=== PATIENT | male | born 2000 | race Caucasian/White ===

== ENCOUNTER 2024-07-13 20:14 | Emergency (ER) | payer SELFPAY ==
[2024-07-13] MEDS ORDERED: dexAMETHasone 10 MG/ML VIAL ONE (20:24)
--- NOTE | 2024-07-13 20:28 | EDPHYS ---
Physician Documentation [facility] Name: Brien Ashley Age: 24 yrs Sex: Male : 2000 Arrival Date: 07/13/2024 Time: 20:14 Bed Waiting Private MD: ED Physician Faisal Mckeon HPI: 07/13 20:27 This 24 yrs old Male presents to ER via Unassigned with complaints of Rash. kb 20:27 Pt is a 24 year old male who presents for rash to bilateral forearms that started 2 kb weeks ago. States he got into poison caprice. Has taken prednisone and it is much better, but seems to be coming back now. Reports itching. . Historical: - Allergies: 20:35 No Known Allergies; cm10 - Home Meds: 20:35 Propranolol Oral [Active]; BuSpar Oral [Active]; cm10 - PMHx: 20:35 Anxiety; Depressive disorder; cm10 - PSHx: 20:35 None; cm10 - Immunization history:: Adult Immunizations up to date. - Infectious Disease History:: Denies. - Social history:: Smoking status: Patient denies any tobacco usage or history of. ROS: 20:26 Constitutional: As per HPI kb Exam: 20:26 Constitutional: This is a well developed, well nourished patient who is awake, alert, kb and in no acute distress. Head/Face: Normocephalic, atraumatic. ENT: Moist Mucous membranes Cardiovascular: Regular rate Respiratory: Respirations even and unlabored. No increased work of breathing. Talking in full sentences MS/ Extremity: Pulses equal, no cyanosis. Neurovascular intact. Full, normal range of motion. Neuro: Awake and alert, GCS 15, oriented to person, place, time, and situation. 20:26 Skin: rash a mild rash is noted, consistent with contact dermatitis, on the right arm and left arm, Vital Signs: 20:34 BP 130 / 75; Pulse 82; Resp 15; Temp 98.2; Pulse Ox 98% on R/A; Weight 70.31 kg; Height cm10 5 ft. 7 in. ; Pain 0/10; 20:34 Body Mass Index 24.28 (70.31 kg, 170.18 cm) cm10 20:34 Pain Scale: Adult cm10 MDM: 20:20 Medical Screening Exam initiated kb 20:27 Differential diagnosis: allergic reaction, parasite infection. Data reviewed: vital kb signs, nurses notes. Counseling: I had a detailed discussion with the patient and/or guardian regarding the historical points, exam findings, and any diagnostic results supporting the discharge/admit diagnosis, the need for outpatient follow up, a family practitioner, to return to the emergency department if symptoms worsen or persist or if there are any questions or concerns that arise at home. Administered Medications: 20:33 Drug: Famotidine PO 20 mg PO once Route: PO; cm10 20:42 Follow up: Response: No adverse reaction cm10 20:34 Drug: Dexamethasone IM 10 mg IM once Route: IM; Site: right gluteus; cm10 20:42 Follow up: Response: No adverse reaction cm10 Disposition Summary: 07/13/24 20:28 Discharge Ordered Notes: Location: Home kb Condition: Stable kb Diagnosis - Allergic contact dermatitis due to plants, except food kb Followup: kb - With: Emergency Department - When: As needed - Reason: Worsening of condition Followup: kb - With: Private Physician - When: 2 - 3 days - Reason: Recheck today's complaints, Continuance of care, Re-evaluation by your physician Discharge Instructions: - Discharge Summary Sheet kb - Poison Caprice Dermatitis, [id number] kb Forms: - Medication Reconciliation Form kb - Antibiotic Education kb - Prescription Opioid Use kb - Patient Portal Instructions kb - Leadership Thank You Letter kb Prescriptions: - Pepcid 20 mg Oral Tablet - take 1 tablet ORAL route every 12 hours for 5 days; 10 tablet; Refills: 0, kb Product Selection Permitted Signatures: Zohra Frost FNP-C FNP-Shirley Arthur, RN RN cm10 Corrections: (The following items were deleted from the chart) 20:36 20:35 Home Meds: None; cm10 cm10 20:36 20:35 PMHx: None; cm10 cm10
[2024-07-13] MEDS ORDERED: FAMOTIDINE 20 MG TAB ONE (20:30)
--- NOTE | 2024-07-13 20:43 | ER ---
Nurse's Notes [facility] Name: Brien Ashley Age: 24 yrs Sex: Male : 2000 Arrival Date: 07/13/2024 Time: 20:14 Bed Waiting Private MD: Diagnosis: Allergic contact dermatitis due to plants, except food Presentation: 07/13 20:34 Chief complaint: Patient states: Rash to bilateral arms onset today. pt states that the cm10 rash itches. Coronavirus screen: Client denies travel out of the [place] in the last 14 days. Ebola Screen: Patient denies travel to an Ebola-affected area in the 21 days before illness onset. Initial Sepsis Screen: Does the patient meet any 2 criteria? No. Patient's initial sepsis screen is negative. Does the patient have a suspected source of infection? No. Patient's initial sepsis screen is negative. Risk Assessment: Do you want to hurt yourself or someone else? Patient reports no desire to harm self or others. Onset of symptoms was July 13, 2024. 20:34 Method Of Arrival: Ambulatory cm10 20:34 Acuity: JAZMINE 4 cm10 Triage Assessment: 20:36 General: Appears in no apparent distress. comfortable, Behavior is calm, cooperative. cm10 Pain: Denies pain. Neuro: No deficits noted. Level of Consciousness is awake, alert, obeys commands, Oriented to person, place, time, situation, Appropriate for age. Respiratory: No deficits noted. Airway is patent Respiratory effort is even, unlabored, Respiratory pattern is regular, symmetrical. Derm: Rash noted that is itchy, red, on left arm and right arm. Historical: - Allergies: 20:35 No Known Allergies; cm10 - Home Meds: 20:35 Propranolol Oral [Active]; BuSpar Oral [Active]; cm10 - PMHx: 20:35 Anxiety; Depressive disorder; cm10 - PSHx: 20:35 None; cm10 - Immunization history:: Adult Immunizations up to date. - Infectious Disease History:: Denies. - Social history:: Smoking status: Patient denies any tobacco usage or history of. Screenin:36 [facility] ED Fall Risk Assessment (Adult) History of falling in the last 3 months, cm10 including since admission No falls in past 3 months (0 pts) Confusion or Disorientation No (0 pts) Intoxicated or Sedated No (0 pts) Impaired Gait No (0 pts) Mobility Assist Device Used No (0 pt) Altered Elimination No (0 pt) Score/Fall Risk Level 0 - 2 = Low Risk Oriented to surroundings, Maintained a safe environment, Hourly rounding (assess needs \T\ fall precautionary measures) done. Abuse screen: Denies threats or abuse. Denies injuries from another. Nutritional screening: No deficits noted. Tuberculosis screening: No symptoms or risk factors identified. Vital Signs: 20:34 BP 130 / 75; Pulse 82; Resp 15; Temp 98.2; Pulse Ox 98% on R/A; Weight 70.31 kg; Height cm10 5 ft. 7 in. ; Pain 0/10; 20:34 Body Mass Index 24.28 (70.31 kg, 170.18 cm) cm10 20:34 Pain Scale: Adult cm10 ED Course: 20:18 Patient arrived in ED. gm2 20:20 [facility] kb 20:20 Faisal Mckeon MD is Attending Physician. kb 20:34 Triage completed. cm10 20:36 Arm band placed on right wrist. Patient placed in waiting room. cm10 20:37 Patient has correct armband on for positive identification. Provided Education on: cm10 Follow-up instructions. 20:37 No provider procedures requiring assistance completed. Patient did not have IV access cm10 during this emergency room visit. Administered Medications: 20:33 Drug: Famotidine PO 20 mg PO once Route: PO; cm10 20:42 Follow up: Response: No adverse reaction cm10 20:34 Drug: Dexamethasone IM 10 mg IM once Route: IM; Site: right gluteus; cm10 20:42 Follow up: Response: No adverse reaction cm10 Medication: 20:36 VIS not applicable for this client. cm10 Outcome: 20:28 Discharge ordered by . kb 20:37 Discharged to home ambulatory, cm10 20:37 Condition: good 20:37 Discharge instructions given to patient, Instructed on discharge instructions, follow up and referral plans. medication usage, Demonstrated understanding of instructions, follow-up care, medications, Prescriptions given X 1, 20:42 Patient left the ED. cm10 Signatures: Zohra Frost FNP-C FNP-Ckb Martinez, Clarissa, RN RN cm10 Holly Aiken gm2 Corrections: (The following items were deleted from the chart) 20:36 20:35 Home Meds: None; cm10 cm10 20:36 20:35 PMHx: None; cm10 cm10
[2024-07-14 05:55] VITALS: BP 130/75; TEMP 98.2; O2SAT 98
== END 2024-07-13 20:42 | disposition home or self-care (01) ==
LOC: ER 20:14
DX: L23.7 Allergic contact dermatitis due to plants, except food (principal)
CPT/HCPCS: J1100

== ENCOUNTER 2024-07-17 20:49 | Emergency (ER) | payer SELFPAY ==
--- NOTE | 2024-07-17 21:23 | EDPHYS ---
Physician Documentation [facility] Name: Brien Ashley Age: 24 yrs Sex: Male : 2000 Arrival Date: 07/17/2024 Time: 20:49 Bed DX3 Private MD: ED Physician Garrett Dawn HPI: 07/17 21:58 This 24 yrs old Male presents to ER via Ambulatory with complaints of Allergic Reaction sb4 - poison caprice. 21:58 got into poison caprice 2 weeks ago, has had a rash ever since. was initially put on a sb4 short course of prednisone which made it go away for a few days then it came back. he came here 4 days ago, was given a dexamethasone injection and rx for pepcid. states it went away for a day then came right back. states it is on his arms and genitals and he cannot sleep because of it. Historical: - Allergies: 20:56 No Known Allergies; me1 - PMHx: 20:56 Anxiety; depressive disorder; me1 - PSHx: 20:56 None; me1 - Immunization history:: Adult Immunizations up to date. - Infectious Disease History:: Denies. - Social history:: Smoking status: Patient reports use of chewing tobacco. ROS: 21:58 Constitutional: Negative for fever, chills, and weight loss, sb4 21:58 Allergy/Immunology: Positive for rash, diffusely, 21:58 All other systems are negative, Exam: 22:00 Head/Face: Normocephalic, atraumatic. Eyes: Extra-ocular motions intact. Periorbital sb4 areas with no swelling, redness, or edema. ENT: Mucous membranes moist. Respiratory: No increased work of breathing, no retractions or nasal flaring. 22:00 Constitutional: The patient appears alert, awake, uncomfortable, 22:00 Skin: erythema and warmth on bilateral arms, Vital Signs: 20:53 BP 149 / 86; Pulse 86; Resp 16; Temp 98; Pulse Ox 99% ; Weight 70.31 kg; Height 5 ft. 7 me1 in. ; Pain 6/10; 20:53 Body Mass Index 24.28 (70.31 kg, 170.18 cm) me1 20:53 Pain Scale: Adult me1 MDM: 20:57 Medical Screening Exam initiated sb4 22:01 Data reviewed: vital signs, nurses notes, and as a result, I will discharge patient. sb4 Counseling: I had a detailed discussion with the patient and/or guardian regarding the historical points, exam findings, and any diagnostic results supporting the discharge/admit diagnosis, the need for outpatient follow up, for definitive care, to return to the emergency department if symptoms worsen or persist or if there are any questions or concerns that arise at home. Administered Medications: 21:33 Drug: MethylPREDNISolone Sodium Succinate IM 125 mg IM once Route: IM; Site: right vc1 ventrogluteal; 21:33 Follow up: Response: Medication administered at discharge. vc1 Disposition: 07/18 08:43 Co-signature as Attending Physician, Garrett Dawn MD I agree with the assessment and tabitha plan of care. Disposition Summary: 07/17/24 21:22 Discharge Ordered Notes: Location: Home sb4 Problem: an ongoing problem sb4 Symptoms: have improved sb4 Condition: Stable sb4 Diagnosis - Allergic contact dermatitis due to plants, except food sb4 Followup: sb4 - With: Private Physician - When: 1 week - Reason: Recheck today's complaints, Re-evaluation by your physician Discharge Instructions: - Discharge Summary Sheet sb4 - Poison Caprice Dermatitis sb4 Forms: - Patient Portal Instructions sb4 - Leadership Thank You Letter sb4 Prescriptions: - Benadryl 25 mg Oral Capsule - take 1 capsule ORAL route every 6 hours As needed; 30 tablet; Refills: 0, sb4 Product Selection Permitted - Hydrocortisone 0.5 % Topical Cream - apply 1 application TOPICAL route every 12 hours As needed; 30 gram; Refills: sb4 0, Product Selection Permitted - Prednisone 20 mg Oral Tablet - take 2 tablets ORAL route once daily for 5 days; 10 tablet; Refills: 0, Product sb4 Selection Permitted Signatures: Garrett Dawn MD MD cha Calcote, Vanessa RN RN vc1 Nicole Verde PA-C PA-C sb4 Anum Rees RN RN me1
--- NOTE | 2024-07-17 21:23 | ER ---
Nurse's Notes [facility] Name: Brien sAhley Age: 24 yrs Sex: Male : 2000 Arrival Date: 07/17/2024 Time: 20:49 Bed DX3 Private MD: Diagnosis: Allergic contact dermatitis due to plants, except food Presentation: 07/17 20:53 Chief complaint: Patient states: he got into some poison jennifer about a week ago. Was seen me1 here about 4 days ago and it got better and then flared back up. Rash to bilateral arms and groin. Coronavirus screen: Vaccine status: Patient reports receiving the 2nd dose of the covid vaccine. Ebola Screen: No symptoms or risks identified at this time. Onset: The symptoms/episode began/occurred 1 week(s) ago. Anaphylaxis evaluation, no signs or symptoms of anaphylaxis were noted. Initial Sepsis Screen: Does the patient meet any 2 criteria? No. Patient's initial sepsis screen is negative. Does the patient have a suspected source of infection? No. Patient's initial sepsis screen is negative. Risk Assessment: Do you want to hurt yourself or someone else? Patient reports no desire to harm self or others. Onset of symptoms is unknown. 20:53 Method Of Arrival: Ambulatory ne1 20:53 Acuity: JAZMINE 4 me1 Triage Assessment: 21:35 General: Appears in no apparent distress. uncomfortable, slender, well groomed, well vc1 developed, well nourished, Behavior is calm, cooperative, appropriate for age. Pain: Denies pain. EENT: No deficits noted. No signs and/or symptoms were reported regarding the EENT system. Neuro: Level of Consciousness is awake, alert, obeys commands, Oriented to person, place, time, situation, Appropriate for age. Cardiovascular: Heart tones S1 S2 present Capillary refill < 3 seconds Patient's skin is warm and dry. Respiratory: Airway is patent Respiratory effort is even, unlabored, Respiratory pattern is regular, symmetrical, Breath sounds are clear bilaterally. GI: No deficits noted. No signs and/or symptoms were reported involving the gastrointestinal system. : No deficits noted. No signs and/or symptoms were reported regarding the genitourinary system. Derm: Skin is intact, is healthy with good turgor, Skin is dry, Rash noted that is itchy, red, on groin, right arm and left arm. Musculoskeletal: Circulation, motion, and sensation intact. Range of motion: intact in all extremities. Historical: - Allergies: 20:56 No Known Allergies; me1 - PMHx: 20:56 Anxiety; depressive disorder; me1 - PSHx: 20:56 None; me1 - Immunization history:: Adult Immunizations up to date. - Infectious Disease History:: Denies. - Social history:: Smoking status: Patient reports use of chewing tobacco. Screenin:33 [facility] ED Fall Risk Assessment (Adult) History of falling in the last 3 months, vc1 including since admission No falls in past 3 months (0 pts) Confusion or Disorientation No (0 pts) Intoxicated or Sedated No (0 pts) Impaired Gait No (0 pts) Mobility Assist Device Used No (0 pt) Altered Elimination No (0 pt) Score/Fall Risk Level 0 - 2 = Low Risk Oriented to surroundings, Maintained a safe environment, Educated pt \T\ family on fall prevention, incl call for assistance when getting out of bed, Hourly rounding (assess needs \T\ fall precautionary measures) done. Abuse screen: Denies threats or abuse. Nutritional screening: No deficits noted. Tuberculosis screening: No symptoms or risk factors identified. Vital Signs: 20:53 BP 149 / 86; Pulse 86; Resp 16; Temp 98; Pulse Ox 99% ; Weight 70.31 kg; Height 5 ft. 7 me1 in. ; Pain 6/10; 20:53 Body Mass Index 24.28 (70.31 kg, 170.18 cm) me1 20:53 Pain Scale: Adult ne1 ED Course: 20:50 Patient arrived in ED. im 20:54 Nicole Verde PA-C is PHCP. sb4 20:54 Garrett Dawn MD is Attending Physician. sb4 20:56 Triage completed. me1 20:56 Arm band placed on Patient placed in waiting room. me1 21:34 Patient has correct armband on for positive identification. Seen in diagnostic chair. vc1 Provided Education on: take prescribed medications. 21:35 No provider procedures requiring assistance completed. Patient did not have IV access vc1 during this emergency room visit. Administered Medications: 21:33 Drug: MethylPREDNISolone Sodium Succinate IM 125 mg IM once Route: IM; Site: right vc1 ventrogluteal; 21:33 Follow up: Response: Medication administered at discharge. vc1 Medication: 21:35 VIS not applicable for this client. vc1 Outcome: 21:22 Discharge ordered by . sb4 21:37 Discharged to home ambulatory, vc1 21:37 Condition: stable 21:37 Discharge instructions given to patient, Instructed on discharge instructions, follow up and referral plans. medication usage, Demonstrated understanding of instructions, follow-up care, medications, Prescriptions given X 3, 21:37 Patient left the ED. vc1 Signatures: Tanisha Pickard, RN RN vc1 Nicole Verde, PA-C PA-C sbDebra Cummings Michelle, RN RN me1
[2024-07-17] MEDS ORDERED: METHYLPREDNISOLONE 125 MG INJ ONE (21:27)
[2024-07-17 21:42] VITALS: BP 149/86; TEMP 98; O2SAT 99
== END 2024-07-17 21:37 | disposition home or self-care (01) ==
LOC: ER 20:49
DX: L23.7 Allergic contact dermatitis due to plants, except food (principal); F17.220 Nicotine dependence, chewing tobacco, uncomplicated
CPT/HCPCS: 96372; 99284; J2919

== ENCOUNTER 2024-08-06 13:41 | Emergency (ER) | payer SELFPAY ==
--- NOTE | 2024-08-06 14:08 | ER ---
Nurse's Notes [facility] Name: Brien Ashley Age: 24 yrs Sex: Male : 2000 Arrival Date: 08/06/2024 Time: 13:41 Bed IW5 Private MD: Diagnosis: Dental procedure status Presentation: 08/06 14:04 Chief complaint: Patient states: "i feel like i have been hit by a truck, my whole body ap3 hurts." patient reports he is having body aches, and pain when swallowing. Coronavirus screen: Client presents with at least one sign or symptom that may indicate coronavirus-19. Ebola Screen: No symptoms or risks identified at this time. Initial Sepsis Screen: Does the patient meet any 2 criteria? HR > 90 bpm. Does the patient have a suspected source of infection? No. Patient's initial sepsis screen is negative. Risk Assessment: Do you want to hurt yourself or someone else? Patient reports no desire to harm self or others. Onset of symptoms was August 06, 2024. 14:04 Method Of Arrival: Ambulatory ap3 14:04 Acuity: JAZMINE 3 ap3 Triage Assessment: 14:07 General: Appears in no apparent distress. Behavior is cooperative, restless. Pain: ap3 Complains of pain in generalized body aches. EENT: Reports pain when swallowing. Neuro: Level of Consciousness is awake, alert, obeys commands, Oriented to person, place, time, situation, Appropriate for age. Cardiovascular: Patient's skin is warm and dry. Respiratory: Airway is patent Respiratory effort is even, unlabored, Respiratory pattern is regular, symmetrical. Historical: - Allergies: 14:07 No Known Allergies; ap3 - PMHx: 14:07 Anxiety; depressive disorder; ap3 - Immunization history:: Adult Immunizations up to date. - Infectious Disease History:: Denies. - Social history:: Smoking status: Reported history of juuling and/or vaping. Screenin:07 [facility] ED Fall Risk Assessment (Adult) History of falling in the last 3 months, ap3 including since admission No falls in past 3 months (0 pts) Confusion or Disorientation No (0 pts) Intoxicated or Sedated No (0 pts) Impaired Gait No (0 pts) Mobility Assist Device Used No (0 pt) Altered Elimination No (0 pt) Score/Fall Risk Level 0 - 2 = Low Risk Oriented to surroundings, Maintained a safe environment, Educated pt \\T\\ family on fall prevention, incl call for assistance when getting out of bed, Assessed \\T\\ reinforced patient's understanding of fall precautions, Hourly rounding (assess needs \\T\\ fall precautionary measures) done, Used ambulatory aids as needed (educated on \\T\\ assisted with). Abuse screen: Denies threats or abuse. Nutritional screening: No deficits noted. Tuberculosis screening: No symptoms or risk factors identified. Vital Signs: 14:04 BP 131 / 86; Pulse 113; Resp 17; Temp 98.3; Pulse Ox 100% ; Weight 74.84 kg; Height 5 ap3 ft. 7 in. ; Pain 6/10; 14:04 Body Mass Index 25.84 (74.84 kg, 170.18 cm) ap3 14:04 Pain Scale: Adult ap3 ED Course: 13:43 Patient arrived in ED. im 13:44 Nicole Verde [facility]-C [facility]. sb4 13:44 Mikki Pryor MD is Attending Physician. sb4 14:07 Triage completed. ap3 14:08 Arm band placed on right wrist. ap3 14:08 Patient has correct armband on for positive identification. Provided Education on: ap3 hydration education. 14:08 No provider procedures requiring assistance completed. Patient did not have IV access ap3 during this emergency room visit. Administered Medications: No medications were administered Medication: 14:08 VIS not applicable for this client. ap3 Outcome: 14:08 Discharge ordered by . sb4 14:10 Discharged to home ambulatory, ap3 14:10 Condition: good 14:10 Discharge instructions given to patient, Instructed on discharge instructions, follow up and referral plans. medication usage, Demonstrated understanding of instructions, follow-up care, medications, Prescriptions given X 1, 14:10 Patient left the ED. ap3 Signatures: Gilda Guajardo RN RN [email or web address] Nicole Verde PA-C PA-C sb4 Debra Graves im
--- NOTE | 2024-08-06 14:08 | EDPHYS ---
Physician Documentation [facility] Name: Brien Ashley Age: 24 yrs Sex: Male : 2000 Arrival Date: 08/06/2024 Time: 13:41 Bed IW5 Private MD: ED Physician Mikki Pryor HPI: 08/06 15:04 This 24 yrs old Male presents to ER via Ambulatory with complaints of Flu Symptoms. sb4 15:04 Patient states she woke up this morning with a fever and his entire body hurting. He sb4 states that he had a tooth extracted yesterday and is concerned about it. Wanted to make sure that it looks okay. He also reports a mild sore throat. He denies any nausea, cough, sinus congestion, other upper respiratory symptoms. Has taken ibuprofen today for his symptoms. Historical: - Allergies: 14:07 No Known Allergies; ap3 - PMHx: 14:07 Anxiety; depressive disorder; ap3 - Immunization history:: Adult Immunizations up to date. - Infectious Disease History:: Denies. - Social history:: Smoking status: Reported history of juuling and/or vaping. ROS: 15:04 Abdomen/GI: Negative for abdominal pain, nausea, vomiting, diarrhea, and constipation, sb4 15:04 Constitutional: Positive for body aches, chills, fever, 15:04 ENT: Positive for sore throat, 15:04 All other systems are negative, Exam: 15:04 Head/Face: Normocephalic, atraumatic. Eyes: Extra-ocular motions intact. Periorbital sb4 areas with no swelling, redness, or edema. Respiratory: No increased work of breathing, no retractions or nasal flaring. Skin: Warm, dry with normal turgor. Normal color with no rashes, no lesions, and no evidence of cellulitis. 15:04 Constitutional: The patient appears in no acute distress, alert, awake, 15:04 ENT: Posterior pharynx: Tonsils: are normal in appearance, Dental exam: missing teeth, specifically the upper left central incisor (#9), Mild bruising, clotted blood, no significant erythema or swelling. No purulence. 15:04 Cardiovascular: Rate: tachycardic, Rhythm: regular, Vital Signs: 14:04 BP 131 / 86; Pulse 113; Resp 17; Temp 98.3; Pulse Ox 100% ; Weight 74.84 kg; Height 5 ap3 ft. 7 in. ; Pain 6/10; 14:04 Body Mass Index 25.84 (74.84 kg, 170.18 cm) ap3 14:04 Pain Scale: Adult ap3 MDM: 13:46 Medical Screening Exam initiated sb4 15:06 Data reviewed: vital signs, nurses notes, and as a result, I will discharge patient. sb4 Counseling: I had a detailed discussion with the patient and/or guardian regarding the historical points, exam findings, and any diagnostic results supporting the discharge/admit diagnosis, the need for outpatient follow up, for definitive care, a dentist, to return to the emergency department if symptoms worsen or persist or if there are any questions or concerns that arise at home. ED course: I suspect the fever and bodyaches are secondary to a viral illness, however I will treat empirically with antibiotics given the recent extraction. Administered Medications: No medications were administered Disposition Summary: 08/06/24 14:08 Discharge Ordered Notes: Location: Home sb4 Problem: new sb4 Symptoms: have improved sb4 Condition: Stable sb4 Diagnosis - Dental procedure status sb4 Followup: sb4 - With: Emergency Department - When: As needed - Reason: Trouble breathing, Worsening of condition Discharge Instructions: - Discharge Summary Sheet sb4 - Dental Extraction, Care After, [id number] sb4 Forms: - Antibiotic Education sb4 - Patient Portal Instructions sb4 - Leadership Thank You Letter sb4 Prescriptions: - Amoxicillin 875 mg Oral Tablet - take 1 tablet ORAL route every 12 hours for 10 days; 20 tablet; Refills: 0, sb4 Product Selection Permitted Signatures: Gilda Guajardo RN RN ap3 Nicole Verde PA-C PAMjC sb4
[2024-08-06 14:23] VITALS: BP 131/86; TEMP 98.3; O2SAT 100
== END 2024-08-06 14:10 | disposition home or self-care (01) ==
LOC: ER 13:41
DX: Z98.818 Other dental procedure status (principal)
CPT/HCPCS: 99283

== ENCOUNTER 2024-08-25 22:13 | Emergency (ER) | payer SELFPAY ==
[2024-08-25] MEDS ORDERED: SMZ./TMP. 800/160 MG TABLET ONE (22:53)
[2024-08-25] MEDS ORDERED: HYDROCODONE/APAP 7.5/325 MG TAB ONE (22:54)
--- NOTE | 2024-08-25 23:10 | ER ---
Nurse's Notes [facility] Name: Brien Ashley Age: 24 yrs Sex: Male : 2000 Arrival Date: 08/25/2024 Time: 22:13 Bed 10 Private MD: Diagnosis: Cutaneous abscess of groin;Cutaneous abscess of left axilla Presentation: 08/25 22:25 Chief complaint: Patient states: abscess under left arm and on right side of groin, vc1 groin is leaking. Coronavirus screen: Client denies travel out of the [place] in the last 14 days. At this time, the client does not indicate any symptoms associated with coronavirus-19. Ebola Screen: Patient negative for fever greater than or equal to 101.5 degrees Fahrenheit, and additional compatible Ebola Virus Disease symptoms Patient denies exposure to infectious person. Patient denies travel to an Ebola-affected area in the 21 days before illness onset. No symptoms or risks identified at this time. Initial Sepsis Screen: Does the patient meet any 2 criteria? No. Patient's initial sepsis screen is negative. Does the patient have a suspected source of infection? No. Patient's initial sepsis screen is negative. Risk Assessment: Do you want to hurt yourself or someone else? Patient reports no desire to harm self or others. Onset of symptoms was August 22, 2024. Care prior to arrival: Medication(s) given: Motrin, took 2 hours ago Tylenol. 22:25 Method Of Arrival: Ambulatory vc1 22:25 Acuity: JAZMINE 4 vc1 Triage Assessment: 23:30 General: Appears in no apparent distress. uncomfortable, Behavior is calm, cooperative, vc1 appropriate for age. Pain: Complains of pain in groin and left axilla. EENT: No deficits noted. No signs and/or symptoms were reported regarding the EENT system. Neuro: Level of Consciousness is awake, alert, obeys commands, Oriented to person, place, time, situation, Appropriate for age. Cardiovascular: Capillary refill < 3 seconds Patient's skin is warm and dry. Respiratory: Airway is patent Respiratory effort is even, unlabored, Respiratory pattern is regular, symmetrical. GI: No deficits noted. No signs and/or symptoms were reported involving the gastrointestinal system. : No deficits noted. No signs and/or symptoms were reported regarding the genitourinary system. Derm: Skin is healthy with good turgor, Wound noted groin and left axilla. Musculoskeletal: Circulation, motion, and sensation intact. Range of motion: intact in all extremities. Historical: - Allergies: 22:27 No Known Allergies; vc1 - Home Meds: 22:27 BuSpar Oral [Active]; Propranolol Oral [Active]; vc1 - PMHx: 22:27 Anxiety; depressive disorder; vc1 - PSHx: 22:27 None; vc1 - Immunization history:: Client reports receiving the 2nd dose of the Covid vaccine, Flu vaccine is not up to date. - Infectious Disease History:: Denies. - Social history:: Smoking status: Patient reports use of chewing tobacco. Screenin:29 Abuse screen: Denies threats or abuse. Nutritional screening: No deficits noted. vc1 Tuberculosis screening: No symptoms or risk factors identified. 23:28 [facility] ED Fall Risk Assessment (Adult) History of falling in the last 3 months, vc1 including since admission No falls in past 3 months (0 pts) Confusion or Disorientation No (0 pts) Intoxicated or Sedated No (0 pts) Impaired Gait No (0 pts) Mobility Assist Device Used No (0 pt) Altered Elimination No (0 pt) Score/Fall Risk Level 0 - 2 = Low Risk Oriented to surroundings, Maintained a safe environment, Educated pt \T\ family on fall prevention, incl call for assistance when getting out of bed. Vital Signs: 22:25 BP 132 / 88; Pulse 88; Resp 16; Temp 98.3; Pulse Ox 100% ; Weight 74.84 kg; Height 5 vc1 ft. 7 in. ; Pain 10/10; 22:25 Body Mass Index 25.84 (74.84 kg, 170.18 cm) vc1 22:25 Pain Scale: Adult vc1 ED Course: 22:17 Patient arrived in ED. gm2 22:18 Zohra Frost FNP-C [facility] kb 22:18 Sherine Lemus MD is Attending Physician. kb 22:23 Patient has correct armband on for positive identification. Placed in gown. Bed in low vc1 position. Provided Education on: wound care. Pulse ox on. NIBP on. 22:27 Triage completed. vc1 22:28 Arm band placed on right wrist. vc1 22:55 Calcote, Tanisha, RN is Primary Nurse. vc1 23:28 No provider procedures requiring assistance completed. Patient did not have IV access vc1 during this emergency room visit. Administered Medications: 22:55 Drug: Trimethoprim-Sulfamethoxazole PO (160 mg-800 mg (DS) 1 tablet PO once Route: PO; vc1 23:31 Follow up: Response: No adverse reaction vc1 22:55 Drug: Hydrocodone-Acetaminophen PO (7.5 mg-325 mg) 1 tabs PO once Route: PO; vc1 23:31 Follow up: Response: No adverse reaction vc1 Medication: 23:29 VIS not applicable for this client. vc1 Outcome: 23:10 Discharge ordered by . maryann 23:29 Discharged to home ambulatory, vc1 23:29 Condition: stable 23:29 Discharge instructions given to patient, Instructed on discharge instructions, follow up and referral plans. medication usage, Demonstrated understanding of instructions, follow-up care, medications, 23:31 Patient left the ED. vc1 Signatures: Zohra Frost, AIX ARCHITECT-C AIX ARCHITECT-Tanisha Jeffries RN RN vc1 Holly Aiken 2
--- NOTE | 2024-08-25 23:10 | EDPHYS ---
Physician Documentation [facility] Name: Brien Ashley Age: 24 yrs Sex: Male : 2000 Arrival Date: 08/25/2024 Time: 22:13 Bed 10 Private MD: ED Physician Sherine Lemus HPI: 08/25 23:19 This 24 yrs old Male presents to ER via Ambulatory with complaints of Abscess, abscess kb under arm and in groin area. 23:19 Patient is a 24-year-old male who presents for abscess to right groin and left axilla kb that started a couple of days ago. States the one to the groin has been draining a lot of fluid today. Denies fever.. Historical: - Allergies: 22:27 No Known Allergies; vc1 - Home Meds: 22:27 BuSpar Oral [Active]; Propranolol Oral [Active]; vc1 - PMHx: 22:27 Anxiety; depressive disorder; vc1 - PSHx: 22:27 None; vc1 - Immunization history:: Client reports receiving the 2nd dose of the Covid vaccine, Flu vaccine is not up to date. - Infectious Disease History:: Denies. - Social history:: Smoking status: Patient reports use of chewing tobacco. ROS: 23:15 Constitutional: As per HPI kb Exam: 23:15 Constitutional: This is a well developed, well nourished patient who is awake, alert, kb and in no acute distress. Head/Face: Normocephalic, atraumatic. ENT: Moist Mucous membranes Cardiovascular: Regular rate Respiratory: Respirations even and unlabored. No increased work of breathing. Talking in full sentences MS/ Extremity: Pulses equal, no cyanosis. Neurovascular intact. Full, normal range of motion. Neuro: Awake and alert, GCS 15, oriented to person, place, time, and situation. 23:15 Skin: abscess, that is small, of the left axilla, with induration, 23:17 Skin: abscess, that is small, of the groin, with drainage, that is purulent, that is kb serosanguinous, Vital Signs: 22:25 BP 132 / 88; Pulse 88; Resp 16; Temp 98.3; Pulse Ox 100% ; Weight 74.84 kg; Height 5 vc1 ft. 7 in. ; Pain 10/10; 22:25 Body Mass Index 25.84 (74.84 kg, 170.18 cm) vc1 22:25 Pain Scale: Adult vc1 MDM: 22:18 Medical Screening Exam initiated kb 23:18 Differential diagnosis: abscess, cellulitis, insect bite. Data reviewed: vital signs, kb nurses notes. Counseling: I had a detailed discussion with the patient and/or guardian regarding the historical points, exam findings, and any diagnostic results supporting the discharge/admit diagnosis, the need for outpatient follow up, a family practitioner, to return to the emergency department if symptoms worsen or persist or if there are any questions or concerns that arise at home. ED course: No drainable abscess to axilla. Abscess to right groin draining. Administered Medications: 22:55 Drug: Trimethoprim-Sulfamethoxazole PO (160 mg-800 mg (DS) 1 tablet PO once Route: PO; vc1 23:31 Follow up: Response: No adverse reaction vc1 22:55 Drug: Hydrocodone-Acetaminophen PO (7.5 mg-325 mg) 1 tabs PO once Route: PO; vc1 23:31 Follow up: Response: No adverse reaction vc1 Disposition Summary: 08/25/24 23:10 Discharge Ordered Notes: Location: Home kb Condition: Stable kb Diagnosis - Cutaneous abscess of groin kb - Cutaneous abscess of left axilla kb Followup: kb - With: Emergency Department - When: As needed - Reason: Worsening of condition Followup: kb - With: Private Physician - When: 2 - 3 days - Reason: Recheck today's complaints, Continuance of care, Re-evaluation by your physician Discharge Instructions: - Discharge Summary Sheet kb - Skin Abscess, [id number] kb Forms: - Medication Reconciliation Form kb - Antibiotic Education kb - Prescription Opioid Use kb - Patient Portal Instructions kb - Leadership Thank You Letter kb Prescriptions: - Bactrim DS 800-160 mg Oral Tablet - take 1 tablet ORAL route every 12 hours for 10 days; 20 tablet; Refills: 0, kb Product Selection Permitted Signatures: Zohra Frost FNP-C FNP-Tanisha Jeffries RN RN vc1
[2024-08-25 23:54] VITALS: BP 132/88; TEMP 98.3; O2SAT 100
== END 2024-08-25 23:31 | disposition home or self-care (01) ==
LOC: ER 22:13
DX: L02.214 Cutaneous abscess of groin (principal); L02.412 Cutaneous abscess of left axilla